=== PATIENT | female | born 1970 ===

== ENCOUNTER 2018-03-29 09:42 | Emergency (ER) | payer OTHER ==
--- NOTE | 2018-03-29 10:01 | PDOC ---
History of Present Illness - General Chief Complaint: Chest Pain Stated Complaint: CHEST PAIN Time Seen by Provider: 03/29/18 09:48 History Source: Patient Exam Limitations: No Limitations - History of Present Illness Initial Comments: 03/29/18 10:03 47y F hx of HTN (resolved s/p resection R nephrectomy secondary to Renal artery stenosis), GERD, Pituotary tumor, presents with L sided CP. The patient ntoes she was feeling well yesterday, today the patient woke up. When on the way to [place] she noticed the pain was more prominent chest her friend for an aspirin and the friend referred her to the ER. The patient notes that the pain is pressure like and radiates to the left upper arm. It is no associated nausea, vomiting, diaphoresis, shortness of breath. PARKER. The pt notes she does aron and does not feel similar cp or parker or cp on exertion. She has never had similar cp in the past. Denies any heavy lifting/trauma. Father has history of CAD (in 60s) Social social etoh, no smoking, no recreational drug use Past History - Past Medical History Allergies/Adverse Reactions: Allergies Allergy/AdvReac Type Severity Reaction Status Date / Time No Known Allergies Allergy Verified 03/29/18 09:44 Home Medications: Ambulatory Orders Cabergoline [Dostinex -] 0.5 mg PO WEEKLY 03/29/18 Ranitidine HCl 300 mg PO DAILY 03/29/18 Cancer: No (Brain tumor pituitary) COPD: No CHF: No GI Disorders: Yes (Gerd) Disorders: Yes (right kidney removal at age 18) HTN: Yes - Surgical History Abdominal Surgery: Yes (gastric sleeve) - Suicide/Smoking/Psychosocial Hx Smoking History: Never smoked Have you smoked in the past 12 months: No Information on smoking cessation initiated: No Hx Alcohol Use: No Drug/Substance Use Hx: No Substance Use Type: Alcohol Review of Systems - Review of Systems Able to Perform ROS?: Yes Comments:: 03/29/18 10:10 Constitutional - no reported Fever, Chills, HEENT: no reported vision changes, sore throat Respiratory: no reported cough, sob, hemoptysis Cardiac: +chest pain rad L arm no reported palpitations, light headedness, leg swelling Abd/GI: no reported abd pain, nausea, vomiting, blood per rectum, melena, diarrhea : no reported dysuria, frequency, discharge Musculskelatal - no reported back pain, joint swelling skin - no reported bruising, erythema, rash neurological: no reported headache, numbness, focal weakness, tingling, ataxia, hematologic: no reported easy bruising, easy bleeding *Physical Exam - Vital Signs Last Vital Signs Temp Pulse Resp BP Pulse Ox 97.7 F 75 16 143/76 100 03/29/18 09:44 03/29/18 09:44 03/29/18 09:44 03/29/18 09:44 03/29/18 09:44 - Physical Exam Comments: 03/29/18 10:10 GENERAL: The patient is awake, alert, and fully oriented, Nontoxic - in no acute distress. HEAD: Normocephalic, atraumatic. EYES: extraocular movements intact, sclera anicteric, conjunctiva clear. ENT: Normal voice, Moist mucous membranes. NECK: Normal range of motion, supple LUNGS/CHEST: Breath sounds equal, clear to auscultation bilaterally. No wheezes , no rhonchi, no rales. No reproducible tenderness of chest HEART: Regular rate and rhythm, normal S1 and S2 without murmur, rub or gallop. ABDOMEN: Soft, nontender, normoactive bowel sounds. No guarding, no rebound. No CVA tenderness EXTREMITIES: Normal range of motion, no edema. NEUROLOGICAL: No facial assymetry, Normal speech, PSYCH: Normal mood, normal affect. SKIN: Warm, Dry, normal turgor, Heart Score/ECG Review - ECG Impressions Comment:: 03/29/18 10:13 Twelve-lead EKG was performed and reviewed by me. There is normal sinus rhythm with a normal rate. Rate of 66 The axis is normal. The intervals are normal. There is normal R wave progression There are no ST or T wave abnormalities. Impression: Normal twelve-lead EKG ED Treatment Course - LABORATORY CBC & Chemistry Diagram: 03/29/18 10:17 03/29/18 10:17 - ADDITIONAL ORDERS Additional order review: Laboratory Results 03/29/18 03/29/18 03/29/18 11:53 10:17 10:17 Sodium 142 Potassium 4.2 Chloride 108 H Carbon Dioxide 29 Anion Gap 6 L BUN 21 H Creatinine 0.6 Creat Clearance w eGFR > 60 Random Glucose 79 Calcium 8.1 L Total Bilirubin 0.3 AST 10 L ALT 21 Alkaline Phosphatase 59 Creatine Kinase 104 104 Troponin I < 0.02 < 0.02 Total Protein 6.5 Albumin 3.4 Urine Color Urine Appearance Urine pH Ur Specific Protivin Urine Protein Urine Glucose (UA) Urine Ketones Urine Blood Urine Nitrite Urine Bilirubin Urine Urobilinogen Ur Leukocyte Esterase Urine WBC (Auto) Urine RBC (Auto) Ur Epithelial Cells Urine Bacteria Urine Mucus Urine HCG, Qual Negative 03/29/18 10:17 Sodium Potassium Chloride Carbon Dioxide Anion Gap BUN Creatinine Creat Clearance w eGFR Random Glucose Calcium Total Bilirubin AST ALT Alkaline Phosphatase Creatine Kinase Troponin I Total Protein Albumin Urine Color Yellow Urine Appearance Cloudy Urine pH 6.0 Ur Specific Protivin 1.020 Urine Protein Negative Urine Glucose (UA) Negative Urine Ketones Negative Urine Blood Negative Urine Nitrite Negative Urine Bilirubin Negative Urine Urobilinogen Negative Ur Leukocyte Esterase Trace Urine WBC (Auto) 3 Urine RBC (Auto) 2 Ur Epithelial Cells Many Urine Bacteria Many Urine Mucus Rare Urine HCG, Qual 03/29/18 10:17 RBC 4.70 MCV 83.5 MCHC 33.3 RDW 13.4 MPV 8.0 Neutrophils % 47.8 Lymphocytes % 39.7 Monocytes % 10.7 H Eosinophils % 1.1 Basophils % 0.7 - RADIOLOGY Radiology Studies Ordered: Category Date Time Status CHEST PA & LAT [RAD] Stat Radiology 03/29/18 10:02 Taken - Medications Given in the ED: ED Medications Discontinued Medications Generic Name Dose Route Start Last Admin Trade Name Freq PRN Reason Stop Dose Admin Acetaminophen 650 mg 03/29/18 10:02 03/29/18 10:16 Tylenol - PO 03/29/18 10:03 650 mg ONCE ONE Administration Medical Decision Making - Medical Decision Making 03/29/18 10:13 37-year-old female history of your John gland tumor, hypertension status post right nephrectomy stenting with chest pain that seems reproducible with extension of her left shoulder, though there is no reproducible muscular tenderness. Return for further symptoms include muscular pain, acs [id number], PE, pERC negative, and no sob Will obtain blood work, EKG, chest x-ray 03/29/18 13:20 The patient's blood work is negativeincluding troponin 2 Chest x-ray is negative for acute findings The patient is feeling little bit better I will discharge patient follow-up with primary care Return precautions were discussed I discussed the physical exam findings, ancillary test results and final diagnoses with the patient. I answered all of the patient's questions. The patient was satisfied with the care received and felt comfortable with the discharge plan and treatment plan. The patient will call their primary care physician within 24 hours to arrange follow-up and will return to the Emergency Department with any new, persistent or worsening symptoms. *DC/Admit/Observation/Transfer Diagnosis at time of Disposition: Chest pain Qualifiers: Chest pain type: unspecified Qualified Code(s): R07.9 - Chest pain, unspecified - Discharge Dispostion Disposition: HOME Condition at time of disposition: Improved Decision to Admit order: No - Referrals Referrals: Janey Diamond [Other] - Patient Instructions Printed Discharge Instructions: DI for Atypical Chest Pain Additional Instructions: I suspect your chest pain may be muscular in nature please follow-up with your primary care doctor for further evaluation. Take Motrin and Tylenol for your pain. The ER if you have worsening pain, shortness of breath, or any other concerns - Post Discharge Activity
[2018-03-29] MEDS ORDERED: ACETAMINOPHEN 325 MG TABLET (FP) PO ONE (10:02)
[2018-03-29 10:13] VITALS: BMI 33.0
[2018-03-29] MEDS ORDERED: ACETAMINOPHEN 325 MG TABLET (FP) ONE (10:14)
[2018-03-29 10:22] LABS: BASO % 0.7 % (0-2.0); EOS % 1.1 % (0-4.5); HEMATOCRIT 39.2 % (32.4-45.2); HEMOGLOBIN 13.1 GM/dL (10.7-15.3); LYMPH % 39.7 % (8-40); MCH 27.8 pg (25.7-33.7); MCHC 33.3 g/dl (32.0-36.0); MEAN CELL VOLUME 83.5 fl (80-96); MONO % 10.7 % (3.8-10.2); NEUT % 47.8 % (42.8-82.8); PLATELET COUNT 209 K/MM3 (134-434); RDW 13.4 % (11.6-15.6); WHITE BLOOD COUNT 3.6 K/mm3 (4.0-10.0)
[2018-03-29 10:38] LABS: URINE APPEARANCE CLOUDY; URINE BILIRUBIN NEGATIVE (<2.0 mg/dL); URINE COLOR YELLOW; URINE GLUCOSE (UA) NEGATIVE (NEGATIVE); URINE KETONE NEGATIVE (NEGATIVE); URINE LEUK ESTERASE TRACE (NEGATIVE); URINE NITRITE NEGATIVE (NEGATIVE); URINE PROTEIN NEGATIVE (NEGATIVE); URINE UROBILINOGEN NEGATIVE mg/dL (0.2-1.0)
[2018-03-29 10:52] LABS: EPI CELLS MANY /HPF (FEW); URINE BACTERIA MANY /hpf (NONE SEEN); URINE MUCUS RARE
[2018-03-29 10:53] LABS: ALBUMIN 3.4 g/dl (3.4-5.0); ALK PHOS 59 U/L (45-117); ANION GAP 6 MMOL/L (8-16); BILIRUBIN,TOTAL 0.3 mg/dL (0.2-1); BLOOD UREA NITROGEN 21 mg/dL (7-18); CALCIUM 8.1 mg/dL (8.5-10.1); CHLORIDE 108 mmol/L (98-107); CO2 29 mmol/L (21-32); CREATININE 0.6 mg/dL (0.55-1.3); GLUCOSE,RANDOM 79 mg/dL (74-106); POTASSIUM 4.2 mmol/L (3.5-5.1); SGOT/AST 10 U/L (15-37); SGPT/ALT 21 U/L (13-61); SODIUM 142 mmol/L (136-145); TOT PROT 6.5 g/dl (6.4-8.2)
[2018-03-29 13:28] VITALS: BP 117/73; PULSE 66; TEMP 98.2
--- NOTE | 2018-03-29 13:41 | EKG ---
Test Reason : Blood Pressure : / mmHG Vent. Rate : 066 BPM Atrial Rate : 066 BPM P-R Int : 178 ms QRS Dur : 088 ms QT Int : 388 ms P-R-T Axes : 057 042 042 degrees QTc Int : 406 ms NORMAL SINUS RHYTHM NORMAL ECG NO PREVIOUS ECGS AVAILABLE Confirmed by MELISSA HERNANDEZ MD ([id number]) on 03/29/2018 1:41:19 PM Referred By: Confirmed By:MELISSA HERNANDEZ MD
== END 2018-03-29 13:30 | disposition home or self-care (01) ==
LOC: JER 09:42
DX: R07.9 Chest pain, unspecified (principal); K21.9 Gastro-esophageal reflux disease without esophagitis; D49.7 Neoplasm of unspecified behavior of endocrine glands and other parts of nervous system; Z86.79 Personal history of other diseases of the circulatory system; Z90.5 Acquired absence of kidney
CPT/HCPCS: 36415; 71046-TC-FY; 80053; 81003; 81015; 82550; 84484; 84703; 85025; 93005; 93010; 99284-25